=== PATIENT | male | born 1940 | race Caucasian/White ===

== ENCOUNTER → 2018-07-09 16:51 | Outpatient (CLI) | payer MEDICARE ==
[2014-03-30 13:15] VITALS: BMI 33.0
[~2018-07-09 16:51] MED LIST: COREG6.25 MG PO; NITROSTAT0.4 MG
[2018-07-09 18:03] LABS: ANION GAP 16.1 mmol/L (8-16); CALCIUM 9.2 mg/dL (8.5-10.1); CARBON DIOXIDE 22.4 mmol/L (21.0-32.0); CREATININE - SERUM 1.3 mg/dL (0.6-1.3); POTASSIUM - SERUM 4.5 mmol/L (3.5-5.1)
== END | disposition home or self-care (01) ==
LOC: D.LABREF 16:51
PROVIDERS: ATTEND Nurse Practitioner
DX: I10 Essential (primary) hypertension (principal)

== ENCOUNTER → 2019-01-17 08:30 | Outpatient (CLI) | payer MEDICARE ==
[2014-03-30 13:15] VITALS: BMI 33.0
== END | disposition home or self-care (01) ==
LOC: D.HCCECHO 08:30
PROVIDERS: ATTEND Internal Medicine Cardiovascular Disease
DX: I10 Essential (primary) hypertension (principal)